=== PATIENT | male | born 1950 | race Caucasian/White ===

== ENCOUNTER → 2016-08-22 | Outpatient (CLI) | payer OTHER ==
--- NOTE | 2016-08-22 12:47 | DIAGNOSTIC IMAGING REPORT ---
MRI OF THE LUMBAR SPINE WITHOUT CONTRAST CLINICAL HISTORY: Lumbar radiculopathy. Low back pain with new onset right leg weakness. COMPARISON STUDY: No previous studies for comparison. TECHNIQUE: Utilizing a 1.5 Jeanie magnet and dedicated coil, multiplanar, multiecho imaging of the lumbar spine was performed without IV contrast. FINDINGS: For purposes of numbering on this exam, the L5-S1 disc space is assigned to axial image 27 of 30. There are findings consistent with an L5-S1 discectomy with interbody spacer placement. There is a posterior decompression. There are bilateral pedicle screws at the L4, L5 and S1 levels. Alignment of lumbar spine is anatomic. Vertebral body heights are maintained. The conus terminates at the mid L1 level. Note is made of a tiny 4 mm T2 hypointense intradural abnormality within the aspect of the canal at the L1 level. Paravertebral soft tissues are unremarkable. L1-2: There is disc space narrowing with disc bulge, eccentric to the right. There is mild narrowing of the right lateral recess and right neural foramen. L2-3: There is disc bulge with a superimposed disc protrusion. There is ligamentous hypertrophy and facet arthrosis. There is moderate to severe narrowing of the central canal and lateral recesses. In addition, there is a suspected right paracentral/foraminal disc protrusion with mass effect upon the right L3 nerve root. L3-4: There is ligamentous hypertrophy and facet arthrosis with minimal disc bulge. There is mild narrowing of the central canal, lateral recesses and left neural foramen with moderate narrowing of the right neural foramen. L4-5: There is disc space narrowing. There is no residual central canal stenosis. The neural foramen are patent L5-S1: There is no residual central canal stenosis. The left neural foramen is patent. There is mild to moderate narrowing of the right neural foramen. IMPRESSION: 1. Status post L5-S1 discectomy and L4-S1 bilateral pedicle screw fusion. 2. Moderate to severe narrowing of the central canal and lateral recesses at the L2-L3 level due to disc bulge with central disc protrusion, ligamentous hypertrophy and facet arthrosis. In addition, there is a suspected right paracentral/foraminal disc protrusion with mass effect upon the right L3 nerve. This could be correlated with right L3 radiculopathy. 3. Mild central canal stenosis at L3-L4 and L1-L2. 4. Moderate multilevel neural foraminal stenosis, as detailed above. 5. Tiny 4 mm intradural extramedullary abnormality within the left aspect of the canal at the L1 level. This is indeterminate and suboptimally assessed on this unenhanced exam. This could reflect a tiny meningioma or [place] edema. A follow-up MRI in 6 months to ensure stability is recommended. Electronically signed by: Pravin Jerry M.D. 08/22/2016 12:46 PM Dictated Date/Time: 08/22/2016 11:05 AM
== END | disposition home or self-care (01) ==
LOC: C.MRI 09:56
PROVIDERS: ATTEND Family Medicine
DX: M54.16 Radiculopathy, lumbar region (principal); M48.06 Spinal stenosis, lumbar region